=== PATIENT | female | born 1935 | race Caucasian/White ===

== ENCOUNTER 2017-10-31 00:48 | Emergency (ER) | payer MEDICARE, OTHER ==
[~2017-10-31] VITALS: Ht 160 cm; Wt 59.0 kg
--- OUTSIDE RECORDS SUMMARY | ~2017-10-31 | XMS | Clinical Summary ---
Demographics + + + | Address | [address] | | | [place] [address] | + + + | Home Phone | | + + + | Preferred Language | Unknown | + + + | Marital Status | | + + + | Voodoo Affiliation | 1041 | + + + | Race | Unknown | + + + | Ethnic Group | Unknown | + + + Author + + + | Author | [facility] | + + + | Organization | [facility] | + + + | Address | Unknown | + + + | Phone | Unavailable | + + + Support + + + + + | Name | Relationship | Address | Phone | + + + + + | Maria Teresa Wayne | ECON | [address] | | | | | [place] | | | | | [phone] | | + + + + + | Krysta Mcdonald | ECON | Unknown | | + + + + + Care Team Providers + +------+ + | Care Guest Relations Agent Name | Role | Phone | + +------+ + | Rachel Lindsay PA-C | PP | | + +------+ + Allergies No Known Allergies Current Medications + + +--------+---------+------+------+-------+ | Prescription | Sig. | Disp. | Refills | Star | End | Statu | | | | | | t | Date | s | | | | | | Date | | | + + +--------+---------+------+------+-------+ | lisinopril | Take 40 mg by mouth | | | | | Activ | | (PRINIVIL,ZESTRIL) | daily. | | | | | e | | 20 MG tablet | | | | | | | + + +--------+---------+------+------+-------+ | metformin | Take 500 mg by mouth | | | | | Activ | | (GLUCOPHAGE) 500 MG | before breafast. | | | | | e | | tablet | | | | | | | + + +--------+---------+------+------+-------+ | trazodone | Take 50 mg by mouth | | | | | Activ | | (DESYREL) 50 MG | nightly. | | | | | e | | tablet | | | | | | | + + +--------+---------+------+------+-------+ | aspirin 81 MG | Take 81 mg by mouth | | | | | Activ | | tablet | daily. | | | | | e | + + +--------+---------+------+------+-------+ | citalopram | Take 20 mg by mouth | | | | | Activ | | (CELEXA) 20 MG | daily. | | | | | e | | tablet | | | | | | | + + +--------+---------+------+------+-------+ | clonazePAM | Take 1 mg by mouth 2 | | | | | Activ | | (KLONOPIN) 1 MG | (two) times daily. | | | | | e | | tablet | 0.5 mg in am , 1 mg | | | | | | | | in pm, weaning off | | | | | | | | of it . | | | | | | + + +--------+---------+------+------+-------+ | propylene glycol | Place 2 drops into | | | | | Activ | | (SYSTANE BALANCE) | both eyes nightly as | | | | | e | | 0.6 % ophthalmic | needed. | | | | | | | solution | | | | | | | + + +--------+---------+------+------+-------+ | Calcium | Take 400 mg by mouth | | | | | Activ | | Citrate-Vitamin D | 2 (two) times | | | | | e | | (CITRACAL | daily. | | | | | | | PETITES/VITAMIN D) | | | | | | | | 200-250 MG-UNIT TABS | | | | | | | + + +--------+---------+------+------+-------+ | Multiple | Take by mouth | | | | | Activ | | Vitamins-Minerals | daily. | | | | | e | | (ONE-A-DAY 50 PLUS) | | | | | | | | TABS | | | | | | | + + +--------+---------+------+------+-------+ | Inulin (FIBER | Take by mouth | | | | | Activ | | CHOICE PO) | daily. 2 tablets in | | | | | e | | | AM | | | | | | + + +--------+---------+------+------+-------+ | latanoprost | Place 1 drop into | | | | | Activ | | (XALATAN) 0.005 % | both eyes nightly. | | | | | e | | ophthalmic solution | | | | | | | + + +--------+---------+------+------+-------+ | atorvastatin | Take 40 mg by mouth | | | | | Activ | | (LIPITOR) 40 MG | nightly. | | | | | e | | tablet | | | | | | | + + +--------+---------+------+------+-------+ | Multiple | Take by mouth. | | | | | Activ | | Vitamins-Minerals | | | | | | e | | (MACULAR HEALTH | | | | | | | | FORMULA PO) | | | | | | | + + +--------+---------+------+------+-------+ | metoprolol | Take 1 tablet by | 180 | 3 | 05/1 | | Activ | | (TOPROL-XL) 50 MG 24 | mouth 2 (two) times | tablet | | 0/20 | | e | | hr tablet | daily. | | | 18 | | | + + +--------+---------+------+------+-------+ Active Problems + + + | Problem | Noted Date | + + + | Chronic kidney disease, stage III (moderate) | 03/08/2015 | + + + + + | Last Assessment & Plan: CKD, Stage 3, followed by PCP. | + + + + + | Essential hypertension | 02/11/2013 | + + + + + | Last Assessment & Plan: Hypertension, controlled, continue | | current medical dose (lisinopril, metoprolol). | + + + + + | Hyperlipidemia | 02/11/2013 | + + + + + | Last Assessment & Plan: Hyperlipidemia, at goal, continue | | current meds at current dose (atorvastatin). Labs reviewed with | | patient.Labs, 11/30/2015: T Chol: 130, LDL-Chol: 53, HDL-Chol: 63, | | Tri Liver enzymes NML, K: 4.5, | | BUN/Cr: 20/1.5 (GFR 34), glu: 87 HgbA1c: | | 5.8, WBC: 3.2, H/H: 10.1/31.2, plt: na | + + + + + | Atrioventricular block, complete | 01/26/2013 | + + + + + | Last Assessment & Plan: 3rd degree AVB, pacemaker therapy. | | 80yo WF, continues to be relatively active, she denies | | any palpitations or lightheadedness, denies any chest discomfort, | | SOB, orthopnea or PND. No significant edema. Since last seen, | | one year ago, no surgical procedures or hospitalizations. We | | interrogated her pacemaker today in the office, device stable. | | ECG and laboratory data done earlier this year by PCP reviewed | | with patient. Tolerating medications. No changes in therapy. | | Regular exercise regimen is encouraged. Will be followed | | clinically.Hx Pacemaker, initial implant 03/07/2005. Both | | electrodes deteriorating, replaced at time of generator change, | | 10/22/2012. [facility] [address] [address] BARON [id number], SN: [id number].Last | | interrogation, 02/25/2016 (Dr Garcia): DDD-R (60/130), battery at | | 2.93V, 7+ years, device stable, A-paced 39%, V-paced >99%, Mode | | Switch <1%, Atrial electrode: 550Ohms, Ventricular electrode: | | 380Ohms.Hx CABG: noHx PCI/stent: noLast Cath: naLast Echo: naLast | | stress test, 05/09/2015 ([facility]): Enricoiscan, shirin NML, | | LVEF 63%. ECG, 11/27/2015 (Dr Gupta): sinus rhythm, 67bpm, LBBB. | + + + + + | DM (diabetes mellitus) | 01/12/2012 | + + + + + | Last Assessment & Plan: DM2, managed by PCP. | + + Family History + + +------+ + | Medical History | Relation | Name | Comments | + + +------+ + | Congestive Heart | Brother | | | | Failure | | | | + + +------+ + | Heart failure | Brother | | | + + +------+ + | Heart disease | Father | | | + + +------+ + | Cancer | Mother | | | + + +------+ + | Pancreatitis | Mother | | | + + +------+ + | Kidney disease | Sister | | | + + +------+ + + +------+ + + | Relation | Name | Status | Comments | + +------+ + + | Brother | | | | + +------+ + + | Father | | Other | pacemaker, of pneumonia | + +------+ + + | Mother | | | cancreatic Cancer | | | | (Age | | | | | 57) | | + +------+ + + | Sister | | | of renal failure, kidney transplant | | | | (Age | | | | | 62) | | + +------+ + + Social History + + + +--------+ + | Tobacco Use | Types | Packs/Day | Years | Date | | | | | Used | | + + + +--------+ + | Former Smoker | Cigarettes | 0.5 | 20 | 03/23/1964 - | | | | | | 03/23/1984 | + + + +--------+ + + +---+---+---+ | Smokeless Tobacco: | | | | | Never Used | | | | + +---+---+---+ + + +---------+ + | Alcohol Use | Drinks/We | oz/Week | Comments | | | ek | | | + + +---------+ + | No | 0 | 0.0 | | | | Standard | | | | | drinks or | | | | | | | | | | equivalen | | | | | t | | | + + +---------+ + + + + | Sex Assigned at | Date Recorded | | | | + + + | Not on file | | + + + Last Filed Vital Signs + + + + | Vital Sign | Reading | Time Taken | + + + + | Blood Pressure | 128/70 | 07/30/2017 12:40 PM PDT | + + + + | Pulse | 72 | 07/30/2017 12:40 PM PDT | + + + + | Temperature | 36.8 C (98.3 F) | 10/23/2012 7:51 AM PDT | + + + + | Respiratory Rate | 18 | 07/30/2017 12:40 PM PDT | + + + + | Oxygen Saturation | 96% | 07/30/2017 12:40 PM PDT | + + + + | Inhaled Oxygen | - | - | | Concentration | | | + + + + | Weight | 60.2 kg (132 lb 11.2 | 07/30/2017 12:40 PM PDT | | | oz) | | + + + + | Height | 161.3 cm (5' 3.5") | 07/30/2017 12:40 PM PDT | + + + + | Body Mass Index | 23.14 | 07/30/2017 12:40 PM PDT | + + + + Plan of Treatment +--------+ + + + + | Date | Type | Specialty | Care Team | Description | +--------+ + + + + | 11/03/ | Documentati | | | | | 2017 | on Only | | | | +--------+ + + + + | 02/09/ | Documentati | | | | | 2017 | on Only | | | | +--------+ + + + + | 05/18/ | Documentati | | | | | 2018 | on Only | | | | +--------+ + + + + + + + + + | Health Maintenance | Due Date | Last Done | Comments | + + + + + | Diabetic Eye Exam | | | | | | 8 | | | + + + + + | Diabetic Foot Exam | | | | | | 8 | | | + + + + + | Microalbumin | | | | | Screening | 8 | | | + + + + + | Vaccine: | | | | | Dtap/Tdap/Td (1 - | 7 | | | | Tdap) | | | | + + + + + | DEXA SCAN SCREENING | | | | | | 3 | | | + + + + + | Vaccine: | | | | | Pneumococcal 65+ | 3 | | | | Low/Medium Risk (1 | | | | | of 2 - PCV13) | | | | + + + + + | Hemoglobin A1c | | 10/22/2012, 01/12/2012 | | | | 3 | | | + + + + + | Vaccine: Influenza | | | | | (#1) | 8 | | | + + + + + Implants + +--------+--------+ +--------+--------+--------+ | Implanted | Type | Area | Manufacture | Device | Expira | Model | | | | | r | | tion | / | | | | | | Identi | Date | Serial | | | | | | fier | | / Lot | + +--------+--------+ +--------+--------+--------+ | Accent-10/22/2012Implanted: | Pacema | Chest | [facility] | | 01/20/ | | | 10/22/2012 by Marlno Garcia | ker | Wall | MEDICAL [place], | | 2013 | /[id number] | | T, DO (Quantity not on | | | INC. | | | 25 / | | file)Explanted: | | | | | | | + +--------+--------+ +--------+--------+--------+ | Tendril | Pacema | Chest | [employer] | | 06/20/ | [id number] | | Sts10/22/2012Implanted: | ker | | MEDICAL SC, | | 2015 | | | 10/22/2012 by Marlon Garcia | | | INC. | | | /[id number] | | T DO (Quantity not on | | | | | | 0012 / | | file)Explanted: | | | | | | | + +--------+--------+ +--------+--------+--------+ | Tendril | Pacema | Chest | ST[employer] | | 02/19/ | [id number] | | Sts10/22/2012Implanted: | ker | | MEDICAL SC, | | 2014 | | | 10/22/2012 by Marlon Garcia | | | INC. | | | /[id number] | | T, DO (Quantity not on | | | | | | 2899 / | | file)Explanted: | | | | | | | + +--------+--------+ +--------+--------+--------+ Results Not on filefrom Last 3 Months Insurance + +--------+ +------+-------+ + | Payer | Benefi | Subscriber | Type | Phone | Address | | | t Plan | ID | | | | | | / | | | | | | | Group | | | | | + +--------+ +------+-------+ + | MEDICARE | MEDICA | [id number] | | | [address] | | | RE | | | | [place] [phone] | | | IP-OP | | | | | + +--------+ +------+-------+ + | SIRIA - ANNA - | [place] | [id number] | | | [address] [address] | | [place] | [place] | | | | [place] | | | LIFE | | | | [phone] | + +--------+ +------+-------+ + + +--------+ +--------+ + + | Guarantor Name | Accoun | Relation to | Date | Phone | Billing Address | | | t Type | Patient | of | | | | | | | | | | + +--------+ +--------+ + + | MARIA TERESA WAYNE | Person | Self | [birth year] | Home: | [address] | | | al/Fam | | 1936 | [phone] | [place] | | | [place] | | | [phone] | [phone] | + +--------+ +--------+ + +
--- OUTSIDE RECORDS SUMMARY | ~2017-10-31 | XMS | Clinical Summary ---
Demographics + + + | Address | [address] | | | [place] [address] | + + + | Home Phone | | + + + | Preferred Language | Unknown | + + + | Marital Status | Single | + + + | Anabaptist Affiliation | UNK | + + + | Race | Unknown | + + + | Ethnic Group | Other Race | + + + Author + + + | Author | [facility] | + + + | Organization | [facility] | + + + | Address | Unknown | + + + | Phone | Unavailable | + + + Support + + + + + | Name | Relationship | Address | Phone | + + + + + | SUSIE ARGUETA (POA) | ECON | [phone] | | | | | [place] | | | | | [address] | | + + + + + | Lidia Argueta | ECON | Unknown | | + + + + + Care Team Providers + +------+ + | Care Ash Pit Worker Name | Role | Phone | + +------+ + | Jesus Gupta MD | PP | | + +------+ + Source Comments [facility] and [facility] Allergies + + + + + + | Active Allergy | Reactions | Severity | Noted | Comments | | | | | Date | | + + + + + + | No Known Drug | | | 09/06/19 | Alex Zheng | | Allergies | | | 09 | Carmela's note | + + + + + + Current Medications + + +-------+---------+------+------+-------+ | Prescription | Sig. | Disp. | Refills | Star | End | Statu | | | | | | t | Date | s | | | | | | Date | | | + + +-------+---------+------+------+-------+ | Aspirin 81 mg Oral | Take 81 mg by mouth | | | | | Activ | | Tablet | once daily. | | | | | e | + + +-------+---------+------+------+-------+ | mometasone | Instill 2 Sprays | | | | | Activ | | (NASONEX) 50 | into each nostril | | | | | e | | mcg/Actuation Nasal | once daily. | | | | | | | [place], Non-Aerosol | | | | | | | + + +-------+---------+------+------+-------+ | enoxaparin | Inject 0.8 mL under | 28 | 1 | 08/1 | | Activ | | (LOVENOX) 80 mg/0.8 | the skin (SUBC) two | | | 7/20 | | e | | mL Subcutaneous | times daily. | | | 09 | | | | Syringe | | | | | | | + + +-------+---------+------+------+-------+ | acetaminophen 325 | Take 1-2 Tabs by | 0 | 0 | 08/1 | | Activ | | mg Oral Tablet | mouth every four | | | 9/20 | | e | | | hours as needed. | | | 09 | | | | | pain | | | | | | + + +-------+---------+------+------+-------+ | metoprolol 25 mg | Take 1 Tab by mouth | 60 | 0 | 08/1 | | Activ | | Oral Tablet | two times daily. | | | 9/20 | | e | | | | | | 09 | | | + + +-------+---------+------+------+-------+ | oxycodone, | Take 1-3 Tabs by | 60 | 0 | 08/1 | | Activ | | immediate release, 5 | mouth every six | | | 20 | | e | | mg Oral Tablet | hours as needed for | | | 09 | | | | | severe pain. | | | | | | + + +-------+---------+------+------+-------+ | promethazine 12.5 | Take 1 Tab by mouth | 14 | 0 | 08/ | | Activ | | mg Oral Tablet | twice daily as | | | 12/10 | | e | | | needed for | | | 09 | | | | | nausea/vomiting. | | | | | | + + +-------+---------+------+------+-------+ | lisinopril 10 mg | Take 1 Tab by mouth | 28 | 0 | 08/1 | | Activ | | Oral Tablet | two times daily. | | | 12/10 | | e | | | | | | 09 | | | + + +-------+---------+------+------+-------+ | atorvastatin | Take 1 Tab by mouth | 30 | 1 | 08/2 | | Activ | | (LIPITOR) 80 mg Oral | once daily at | | | 04/11 | | e | | Tablet | bedtime. | | | 09 | | | + + +-------+---------+------+------+-------+ | lansoprazole 15 mg | Take 1 Tab by mouth | 90 | 3 | 08/2 | | Activ | | Oral Tablet,Rapid | once daily. | | | 20 | | e | | Dissolve, DR | Administer before | | | 09 | | | | | food; best if taken | | | | | | | | before breakfast. | | | | | | + + +-------+---------+------+------+-------+ | senna-docusate | Take 1 Tab by mouth | | | | | Activ | | (SENNA LAXATIVE) | once daily. Take 1 - | | | | | e | | 8.6-50 mg Oral | 2 tabs daily as | | | | | | | Tablet | needed | | | | | | + + +-------+---------+------+------+-------+ | lisinopril 10 mg | Take 1 Tab by mouth | 60 | 0 | 09/0 | | Activ | | Oral Tablet | two times daily. | | | 120 | | e | | | | | | 09 | | | + + +-------+---------+------+------+-------+ Active Problems + + + | Problem | Noted Date | + + + | Acute mesenteric ischemia (HCC) | 11/21/2008 | + + + | Periumbilical abdominal pain | 10/02/2008 | + + + + + | Overview: ICD10 | + + + + + | NSTEMI (non-ST elevated myocardial infarction) (HCC) | 10/02/2008 | + + + | Protein malnutrition ([facility]) | 10/02/2008 | + + + | Anemia | 10/02/2008 | + + + | CHF (congestive heart failure) ([facility]) | 10/02/2008 | + + + + + | Overview: EF 30-35% | + + Social History + +-------+ +--------+ + | Tobacco Use | Types | Packs/Day | Years | Date | | | | | Used | | + +-------+ +--------+ + | Former Smoker | | | | Quit: 03/23/1984 | + +-------+ +--------+ + + + +---------+ + | Alcohol Use | Drinks/We | oz/Week | Comments | | | ek | | | + + +---------+ + | No | | | | + + +---------+ + + + + | Sex Assigned at | Date Recorded | | | | + + + | Not on file | | + + + Last Filed Vital Signs + + + + | Vital Sign | Reading | Time Taken | + + + + | Blood Pressure | 118/58 | 11/21/2008 4:19 PM PDT | + + + + | Pulse | 87 | 11/21/2008 4:19 PM PDT | + + + + | Temperature | 37.1 C (98.8 F) | 11/21/2008 4:19 PM PDT | + + + + | Respiratory Rate | 16 | 11/21/2008 4:19 PM PDT | + + + + | Oxygen Saturation | 100% | 11/13/2008 10:04 AM PDT | + + + + | Inhaled Oxygen | - | - | | Concentration | | | + + + + | Weight | 67.5 kg (148 lb 12.8 | 11/21/2008 4:19 PM PDT | | | oz) | | + + + + | Height | 163.2 cm (5' 4.25") | 11/21/2008 4:19 PM PDT | + + + + | Body Mass Index | 25.34 | 11/21/2008 4:19 PM PDT | + + + + Plan of Treatment + + + + + | Health Maintenance | Due Date | Last Done | Comments | + + + + + | INFLUENZA VACCINE | | | | | (FLU SHOT) | 8 | | | + + + + + Results Not on filefrom Last 3 Months Insurance + +--------+ +--------+ + + | Payer | Benefi | Subscriber | Type | Phone | Address | | | t Plan | ID | | | | | | / | | | | | | | Group | | | | | + +--------+ +--------+ + + | MEDICARE | MEDICA | xxxxxxxxxx | Medica | +- | [address] | | | RE A & | | re | [phone] | [place] [id number] | | | B | | | | | + +--------+ +--------+ + + | | TRICAR | xxxxxxxxx | Indemn | +- | | | | E 4 | | ity | [phone] | | | | LIFE | | | | | + +--------+ +--------+ + + + +--------+ +--------+ + + | Guarantor Name | Accoun | Relation to | Date | Phone | Billing Address | | | t Type | Patient | of | | | | | | | | | | + +--------+ +--------+ + + | MARIA TERESA WAYNE | Person | Self [birth year] | Home: | [address] | | | al/Fam | | 1936 | [phone] | [place] [address] | | | [place]ay[place] | | | [phone] | | + +--------+ +--------+ + +
--- OUTSIDE RECORDS SUMMARY | ~2017-10-31 | XMS | Clinical Summary ---
Demographics + + + | Address | [address] | | | [place] [address] | + + + | Home Phone | | + + + | Preferred Language | Unknown | + + + | Marital Status | | + + + | Sikhism Affiliation | 1041 | + + + | Race | Unknown | + + + | Ethnic Group | Unknown | + + + Author + + + | Author | [facility] [employer] | + + + | Organization | [facility] | + + + | Address | Unknown | + + + | Phone | Unavailable | + + + Support + + + + + | Name | Relationship | Address | Phone | + + + + + | Maria Teresa Wayne | ECON | [address] | | | | | [place] | | | | | [phone] | | + + + + + | Krysta Mcdonald | ECON | Unknown | | + + + + + Care Team Providers + +------+ + | Care Incinerator Plant Laborer Name | Role | Phone | + [...] time of generator change, | | 10/22/2012. [facility] [address] BARON [id number], SN: [id number].Last | | interrogation, 02/25/2016 (Dr Garcia): DDD-R [...] | 01/20/ | | | 10/22/2012 by Marlon Garcia | ker | Wall | MEDICAL MD, | | 2013 | /[id number] | | T, DO (Quantity not on [...] +------+-------+ + | MEDICARE | MEDICA | [id number] | | | [address] | | | RE | | | | [place] [phone] | | | IP-OP | | | | | + +--------+ +------+-------+ + | SIRIA - ANNA - | [place] | [id number] | | | [address] [address] | | [place] | [place] | | | | [place] | | | LIFE | | | | [phone] | + +--------+ +------+-------+ + + +--------+ [...] | [place] | | | [phone] | [phone] | + +--------+ +--------+ + +
--- OUTSIDE RECORDS SUMMARY | ~2017-10-31 | XMS | Clinical Summary ---
Demographics + + + | Address | [address] | | | [place] [address] | + + + | Home Phone | | + + + | Preferred Language | Unknown | + + + | Marital Status | Unknown | + + + | Buddhist Affiliation | Unknown | + + + | Race | Unknown | + + + | Ethnic Group | Unknown | + + + Author + + + | Author | [facility] | | | and [facility] | + + + | Organization | [facility] | | | and [facility] | + + + | Address | Unknown | + + + | Phone | Unavailable | + + + Care Team Providers + +------+ + | Care Meal Packer Name | Role | Phone | + +------+ + PP | Unavailable | + +------+ + Allergies Not on File Current Medications Not on file Active Problems Not on file Social History + +-------+ +--------+------+ | Tobacco Use | Types | Packs/Day | Years | Date | | | | | Used | | + +-------+ +--------+------+ | Never Assessed | | | | | + +-------+ +--------+------+ + + + | Sex Assigned at | Date Recorded | | | | + + + | Not on file | | + + + Plan of Treatment + [...] + Results Not on filefrom Last 3 Months"
--- OUTSIDE RECORDS SUMMARY | ~2017-10-31 | XMS | Clinical Summary ---
Demographics + + + | Address | [address] | | | [place] [address] | + + + | Home Phone | | + + + | Preferred Language | Unknown | + + + | Marital Status | Single | + + + | Caodaism Affiliation | UNK | + + + [...] [place] | | | | | [address] | | + + + + + | Lidia Argueta | ECON | Unknown | | + + + + + Care Team Providers + +------+ + | Care Pharmacist Assistant Name | Role | Phone | + +------+ + | Jesus Gupta MD | PP | | + +------+ + Source Comments [facility] and [facility]] Allergies + + + + + + [...] | | | | | | | [place], Non-Aerosol | | | | | | [...] | + + + | Protein malnutrition ([facility]) | 10/02/2008 | + + + | Anemia | 10/02/2008 | + + + | CHF (congestive heart failure) ([facility]) | 10/02/2008 | + + + [...] | re | [address] | [place] [address] | | | B | | | [...] | 1936 | [phone] | [place] [address] | | | [place] | | | [phone] | | + +--------+ +--------+ + +
--- OUTSIDE RECORDS SUMMARY | ~2017-10-31 | XMS | Clinical Summary ---
Demographics + + + | Address | [address] | | | [place] [address] | + + + | Home Phone | | + + + | Preferred Language | Unknown | + + + | Marital Status | Unknown | + + + | Baptist Affiliation | Unknown | + + + | Race | Unknown | + + + | Ethnic Group | Unknown | + + + Author + + + | Author | [facility] | | | and [facility] | + + + | Organization | [facility] | | | and [facility] | + + + | Address | Unknown | + + + | Phone | Unavailable | + + + Care Team Providers + +------+ + | Care Bond Broker Name | Role | Phone | + [...]
[~2017-10-31 00:48] MED LIST: ATORVASTATIN CA40 MG PO; CITALOPRAM HBR20 MG PO; LISINOPRIL20 MG PO; METFORMIN HCL500 M1 PO; METOPROLOL SUCC50 MG PO; TAMIFLU75 MG PO
[2017-10-31] MEDS ORDERED: CLONAZEPAM0.5 MG PO (01:03)
== END 2017-10-31 01:22 | disposition home or self-care (01) ==
LOC: ED 00:48
DX: T42.4X1A Poisoning by benzodiazepines, accidental (unintentional), initial encounter (principal); I10 Essential (primary) hypertension; F41.0 Panic disorder [episodic paroxysmal anxiety]; E78.00 Pure hypercholesterolemia, unspecified; Z79.899 Other long term (current) drug therapy
CPT/HCPCS: 99283